=== PATIENT | female | born 1975 | race Caucasian/White ===

== ENCOUNTER 2019-05-06 14:28 | Observation (INO) ==
[2019-05-06] MEDS ORDERED: ZOFRAN IV PRN (14:41)
[2019-05-06] MEDS ORDERED: SODIUM CHLORIDE 0.9% INJ SCH (14:45)
[2019-05-06] MEDS ORDERED: NEXIUM IV SCH (14:45)
--- NOTE | 2019-05-06 15:23 | HISTORY AND PHYSICAL ---
CHIEF COMPLAINT: Nausea, upper abdominal discomfort since a week ago. HISTORY OF PRESENT ILLNESS: She is a 44-year-old white female who was evaluated in our office on Thursday with passing dark colored urine, fatigue, jaundice. The patient was found to have cholestatic jaundice, increased LFTs, direct bilirubin 4.3. She also had a UTI and given Levaquin. Hepatitis profile is pending. Outpatient ultrasound showed gallstones and gallbladder wall thick and common bile duct is normal. Hepatic steatosis, mild splenomegaly with accessory spleen. I spoke to the patient. We can do as an outpatient for this gallbladder disease and rule out hepatitis. Family decided they do not want to wait, admitted to the hospital for further workup. PAST MEDICAL HISTORY: 1. Gallbladder disease with stones. 2. COFFMAN. 3. Splenomegaly. 4. Metabolic syndrome. PAST SURGICAL HISTORY: LEEP procedures, breast augmentation. MEDICINES: Levaquin. ALLERGIES: Sulfa. SOCIAL HISTORY: a second time. Three children. 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 No smoking. No alcohol. She is 5 feet 11 inches, 194 pounds. MAIL HANDLER ASSISTANT: 5, para 3, 0. LMP last week. HEALTH MAINTENANCE: Mammography this year 2019. Pap smear March 2019 in [place]. FAMILY HISTORY: Mother is healthy, 75, had gallbladder surgery. Dad is 77, healthy. REVIEW OF SYSTEMS: HEENT: No headache. No vision problem. No earache. No sore throat. Neck: No neck pain. No goiter. No lymphadenopathy. Cardiopulmonary: No chest pain, shortness of breath, PND, orthopnea. Gastrointestinal: Upper abdominal discomfort, nausea and dark urine. No belly pain. No fever. No swelling of legs. No joint pain. Neurologic: No focal symptoms or weakness. PHYSICAL EXAMINATION: VITAL SIGNS: Patient is afebrile. Vitals are stable. HEENT: Has jaundice. NECK: Supple. No lymphadenopathy. CHEST: Bilateral air entry. HEART: Sounds are regular. Belly is soft, nontender. Negative Farris's sign. No signs of peritonitis. No peripheral edema, cyanosis, no obvious neurological deficits. INVESTIGATIONS: In our office, CBC: White cell count 6, hematocrit 39, platelets 289,000. Hepatitis profile is pending. Thyroid tests were pending. SMA 7 is normal. Total protein 6.2, albumin 3.5, total bilirubin 7.0, alkaline phosphatase, SGOT, SGPT are elevated. Total bilirubin 7.0, direct is 4.3. ASSESSMENT AND PLAN: A 44-year-old white female admitted to the hospital with obstructive jaundice, cholestatic picture, rule out hepatitis, ultrasound, gallbladder disease and impending dehydration. PLAN: 1. IV fluids, IV Zofran, IV Nexium. 2. Deep venous thrombosis prophylaxis with Lovenox. 3. Urinary tract infection. Continue on Levaquin. 4. Follow up on the pending labs. 5. Surgical consult sales and service consultant with Dr. Alonso Lopez and will follow up. cc: Gualberto Mensah MD MTDD
[2019-05-06] MEDS: SODIUM CHLORIDE 0.9% INJ SCH (17:47)
[2019-05-06] MEDS: LEVAQUIN 500 MG/D5W 500 MG/100 ML IVPB IV SCH (17:47)
[2019-05-06] MEDS: NS 1,000 ML IV SCH (17:47)
[2019-05-06] MEDS: PROTONIX IV SCH (17:47)
[2019-05-06 17:54] LABS: BASO# 0.08 X1000 (0.0-0.2); BASO% 1.5 % (0.0-0.8); EOS# 0.06 X1000 (0.0-0.7); EOS% 1.2 % (0.0-10.0); HEMATOCRIT 42.4 % (37.0-47.0); HEMOGLOBIN 13.3 g/dL (12.0-16.0); LYMPH# 2.78 X1000 (1.2-3.4); LYMPH% 53.8 % (20.5-51.1); MCH 25.5 PG (27-31); MCHC 31.4 g/dL (33-37); MCV 81.4 FL (81-99); MONO# 0.44 X1000 (0.11-0.59); MONO% 8.5 % (1.7-9.3); MPV 10.2 FL (7.4-10.4); NEUT# 1.81 X1000 (1.4-6.5); PLT 296 X1000 (130-400); RBC 5.21 XMIL (4.2-5.4); RDW 16.2 % (11.5-14.5); WBC 5.17 X1000 (4.8-10.8)
[2019-05-06 18:10] LABS: AGAP 8; BUN 9 mg/dL (8-22); CALCIUM 8.7 mg/dL (8.8-10.2); CHLORIDE 99 mmol/L (98-107); COSMO 272; CREATININE 0.6 mg/dL (0.5-0.9); ESTIMATED GFR > 60; GLUCOSE 88 mg/dL (70-104); HEMOGLOBIN A1C 5.6 % (4.8-6.0); SODIUM 137 mmol/L (136-145); TCO2 30 mmol/L (25-35)
[2019-05-06] MEDS: LOVENOX SUBQ SCH (18:11)
[2019-05-06 18:13] LABS: AGAP 10; ALB/GLOB RATIO 1.1; ALBUMIN 3.4 g/dL (3.5-5.0); ALKALINE PHOSPHATASE 361 U/L (32-104); AMYLASE 45 U/L (20-200); BUN 9 mg/dL (8-22); CALCIUM 8.8 mg/dL (8.8-10.2); CHLORIDE 99 mmol/L (98-107); COSMO 272; CREATININE 0.5 mg/dL (0.5-0.9); ESTIMATED GFR > 60; GLUCOSE 89 mg/dL (70-104); POTASSIUM 3.2 mmol/L (3.5-5.1); SODIUM 137 mmol/L (136-145); TCO2 28 mmol/L (25-35); TOTAL BILIRUBIN 7.51 mg/dL (0.20-1.00); TOTAL PROTEIN 6.5 g/dL (6.3-8.3)
[2019-05-06 18:22] LABS: GOT 802 U/L (10-30); GPT 1601 U/L (10-36)
--- NOTE | 2019-05-06 20:50 | GENERAL SURGERY CONSULTATION ---
DATE: 05/06/2019 REQUESTING PHYSICIAN: Celia Mensah MD REASON FOR CONSULTATION: Jaundice. HISTORY OF PRESENT ILLNESS: A 44-year-old female who was evaluated in Dr. Mensah's office for discolored urine, and is noted to be jaundiced. She did have an ultrasound as an outpatient that showed gallstones, and per report gallbladder wall thickening. The common bile duct was normal. There is some mild splenomegaly with accessory spleen and hepatic steatosis. The patient at this point does not have any intra-abdominal tenderness and told me she did not have any tenderness. She denies any kind of change in her diet, has not eaten any uncooked food. She has not had any new sexual partners or any unprotected sex recently. PAST MEDICAL HISTORY: 1. Includes history of gallstones. 2. History of nonalcoholic steatohepatitis. 3. History of splenomegaly. 4. Metabolic syndrome. PAST SURGICAL HISTORY: Includes LEEP procedure, breast augmentation. MEDICATIONS: Home medications include Levaquin. ALLERGIES: Sulfa. SOCIAL HISTORY: . Works in [employer]. FAMILY HISTORY: Positive for gallbladder disease. REVIEW OF SYSTEMS: A full 14 systems were reviewed and are negative except as specified in HPI. PHYSICAL EXAMINATION: Vital signs: The patient is currently afebrile. Her vital signs are stable. On general exam, no acute distress. Jaundiced female, looks stated age.HEENT: Normocephalic, atraumatic. Pupils equal, round and reactive to light. Scleral icterus noted. Mucous membranes moist. Oropharynx benign. Neck supple. Trachea midline. Cardiovascular: Regular rate and rhythm. Lungs grossly clear. Abdomen soft, nontender at this time. Extremities: Moves all extremities. Neurologic: Grossly intact. Skin: Positive for jaundice. Vascular: All extremities perfused. LABORATORY DATA: White blood count is normal, hematocrit is normal, platelet count is normal. Bilirubin is 7, AST 800, ALT 1600, alkaline phosphatase 361. Hepatitis panel is currently pending. DIAGNOSTIC DATA: Abdominal CT scan is currently pending. ASSESSMENT AND PLAN: A 44-year-old female with jaundice. Jaundice: At this time the potentials include hepatitis versus gallbladder disease versus even the possibility of pancreatic issue and mass. The history she has given me is almost essentially a painless jaundice. She does not really report any risk factors for hepatitis, but apparently does have a friend who has been over to her house who did have hepatitis. At this point, would like to get the hepatitis panel and we will follow up with a CT scan. May consider surgical intervention if everything else is negative, as gallbladder disease is the only potential cause, but again her common bile duct was not dilated. I would suspect it would be somewhat dilated if she had such an elevated bilirubin. Regardless, we will admit her, keep her on intravenous antibiotics and monitor her closely. Again, potentially consider surgery if imaging and continued workup point in that direction. cc: MD Gualberto Beard MD
[2019-05-06] MEDS: POTASSIUM CHLORIDE 20 MEQ/SWI 20 MEQ/100 ML IVPB IV SCH (21:08)
--- NOTE | 2019-05-06 21:28 | Diag Imaging Result Doc PS360 ---
EXAM: CT ABD/PELVIS W/IV CONT ONLY INDICATION: Abdominal pain TECHNIQUE: This exam was performed using automated exposure control, adjustment of mA or kV according to patient size, and/or use of iterative reconstruction technique. COMPARISON: None. FINDINGS: There is periportal edema and a small amount of fluid that is surrounding the gallbladder. This is a nonspecific finding and can be seen with hepatitis or lymphatic obstruction near the sharad hepatis. Although cholecystitis is in the differential given the pericholecystic fluid. There is no definite gallbladder wall thickening. The head of the pancreas does appear somewhat large. However, no well-defined pancreatic mass can be identified on this study. The common bile duct is not dilated. There is a vague mass that probably represents an enlarged lymph node near the sharad hepatis anterior to the vena cava that measures 2.5 x 1.4 cm axially. Consider evaluation with contrast-enhanced MRI with MRCP. There is probably very minimal hepatic steatosis. The spleen is slightly prominent measuring up to 14.2 cm craniocaudally. The kidneys and urinary bladder are unremarkable. The reproductive tract is grossly unremarkable as imaged. No bowel wall thickening or bowel obstruction is identified. The remainder of the GI tract is essentially unremarkable. There is no evidence of acute osseous abnormality. IMPRESSION: 1.Periportal edema and fluid around the gallbladder. Please see above discussion. 2.Somewhat enlarged pancreatic head. Although no well-defined pancreatic head mass can be identified on the current study, consider evaluation with MRI with contrast to exclude an occult mass. 3.Masslike lesion anterior to the vena cava near the sharad hepatis that probably represents an enlarged lymph node. 4.Mildly prominent spleen. Electronically signed by Anatoliy Gloria 05/06/2019 9:25 PM
[2019-05-07] MEDS: POTASSIUM CHLORIDE 20 MEQ/SWI 20 MEQ/100 ML IVPB IV SCH (00:25)
--- NOTE | 2019-05-07 06:01 | GENERAL SURGERY PROGRESS NOTE ---
DATE: 05/07/2019 SUBJECTIVE: The patient seems to be doing okay. No major issues. No pain. She seems to be comfortable. OBJECTIVE: Vital Signs: The patient is currently afebrile, her vital signs stable. General: No acute distress, jaundiced female, looks stated age. HEENT: Normocephalic, atraumatic. Pupils equal, round, and reactive to light. Positive scleral icterus noted. Mucous membranes moist. Oropharynx benign. Neck: Supple. Trachea midline. Cardiovascular: Regular rate and rhythm. Lungs: Grossly clear. Abdomen: Soft, nontender, nondistended. Extremities: Moves all extremities. Neurologic: Grossly intact. Skin: Positive for jaundice. Vascular: All extremities perfused. LABORATORY: Currently pending. ASSESSMENT/PLAN: A 44-year-old female with painless jaundice. Painless jaundice: At this time, reviewed the official report from the CT scan. I did discuss it with the radiologist over the phone last night. There is some concern of an enlargement of the pancreatic head. It is very vague and there is potential for a masslike lesion anterior to the vena cava which is causing some degree of compression on the vena cava. There is some periportal edema also around the gallbladder which may represent cholecystitis or just whatever process is occurring. At this point she will likely need further imaging before we can definitively put her through any operation, and I would recommend follow-up hepatitis panel and potentially get an MRI and MRCP on Thursday when we can get it. If she does okay, I would consider putting her on a clear liquid diet. We will continue to follow while she is in the hospital. No immediate plans for surgical intervention. cc: MD Gualberto Beard MD
--- NOTE | 2019-05-07 12:52 | PROGRESS NOTE ---
DATE: 05/07/2019 SUBJECTIVE: I appreciated Dr. Alonso Lopez's consult and I spoke to the patient at bedside more than [address] findings were discussed with the patient, and slightly itching. OBJECTIVE: Vital signs: Temperature is 98 degrees. Vitals are stable. Skin: Jaundice noted. Chest: Clear. Heart: Sounds are regular. Abdomen: Belly is soft, nontender. Neurologic: No obvious deficits. INVESTIGATIONS: 1. Bilirubin 7.5. Elevated LFTs. Serum test was negative. 2. CT scan of the abdomen and pelvis showed periportal edema around the gallbladder, enlarged pancreatic head, masslike lesion anterior to the vena cava near the sharad hepatitis with lymph node and mildly prominent spleen. ASSESSMENT: 1. Obstructive jaundice, etiology to be determined. Ultrasound findings showed gallstones with thickening of the gallbladder wall. Common bile duct is normal. History of exposure for hepatitis A pending hepatitis profile. 2. Rule out pancreatic obstructive lesions. Discussed with the patient, we will set up an MRI of the abdomen with contrast and check CA-19-9, IgG 4 levels. PLAN OF CARE: Continue fluids, full liquid diet, Ambien for sleep tonight and follow up on hepatitis profile, CA-19-9, IgG subclasses and discuss the working diagnosis with the patient. LEVEL OF DOCUMENTATION: 25 minutes. cc: Gualberto Mensah MD
[2019-05-07] MEDS: NS 1,000 ML IV SCH (16:26)
[2019-05-07] MEDS: LEVAQUIN 500 MG/D5W 500 MG/100 ML IVPB IV SCH (16:28)
[2019-05-07] MEDS: LOVENOX SUBQ SCH (16:29)
[2019-05-07] MEDS: SODIUM CHLORIDE 0.9% INJ SCH (17:44)
[2019-05-07] MEDS: PROTONIX IV SCH (17:44)
[2019-05-07] MEDS ORDERED: AMBIEN PO SCH (21:00)
[2019-05-08] MEDS: NS 1,000 ML IV SCH ×2 (04:54→09:19)
--- NOTE | 2019-05-08 06:21 | GENERAL SURGERY PROGRESS NOTE ---
DATE: 05/08/2019 SUBJECTIVE: Patient seems to be doing okay. No major issues. She tolerated a full liquid diet. OBJECTIVE: Vital Signs: Patient is currently afebrile. Her vital signs are stable. General: No acute distress. HEENT: Normocephalic, atraumatic. Pupils equal, round, reactive to light. Positive scleral icterus. Mucous membranes moist. Oropharynx benign. Neck: Supple. Trachea midline. Cardiovascular: Regular rate and rhythm. Lungs: Grossly clear. Abdomen: Soft, nontender. Extremities: Moves all extremities. Skin: Positive for jaundice. Vascular: All extremities perfused. LABORATORY: None this morning as of yet. Hepatitis panel is still pending. Several other labs still pending. ASSESSMENT AND PLAN: A 44-year-old female with essentially painless jaundice. Painless jaundice, at this time. MRI is scheduled for tomorrow. We will follow up with that. Otherwise, continue supportive care. Will await hepatitis panel and series of other labs that have been ordered. cc: MD Gualberto Beard MD
[2019-05-08 07:12] LABS: AGAP 7; ALB/GLOB RATIO 0.9; ALBUMIN 2.4 g/dL (3.5-5.0); ALKALINE PHOSPHATASE 302 U/L (32-104); BUN 5 mg/dL (8-22); CALCIUM 7.9 mg/dL (8.8-10.2); CHLORIDE 105 mmol/L (98-107); COSMO 271; CREATININE 0.4 mg/dL (0.5-0.9); ESTIMATED GFR > 60; GLUCOSE 89 mg/dL (70-104); GOT 419 U/L (10-30); POTASSIUM 3.8 mmol/L (3.5-5.1); SODIUM 137 mmol/L (136-145); TCO2 25 mmol/L (25-35); TOTAL BILIRUBIN 6.25 mg/dL (0.20-1.00); TOTAL PROTEIN 5.1 g/dL (6.3-8.3)
[2019-05-08 07:27] LABS: GPT 869 U/L (10-36)
[2019-05-08 11:28] VITALS: BP 124/79
[2019-05-08 11:36] LABS: HEPATITIS PROFILE ACUTE SEE COMMENTS
--- NOTE | 2019-05-08 13:00 | DISCHARGE SUMMARY ---
ADMISSION DATE: 05/06/2019 DISCHARGE DATE: 05/08/2019 DISCHARGING DIAGNOSIS: Cholestatic jaundice due to acute hepatitis A infection. SECONDARY DIAGNOSES: 1. Gallbladder disease with chronic cholecystitis and gallstones. 2. Hepatic steatosis with splenomegaly. 3. Metabolic syndrome. CONSULTS: Dr. Lopez. BRIEF HISTORY: Please see the H and P that was done on 05/06/2019. In brief, she is a 44-year- old, white female without any significant past medical history, losing weight, about 30 pounds for the last 6 months, admitted to the hospital with nausea, hypokalemia, impending dehydration, and jaundice consistent with cholestatic jaundice picture. Ultrasound showed gallstone disease, chronic cholecystitis, common bile duct is normal. HOSPITAL COURSE: The patient was given IV fluids. Replaced the potassium. Zofran. IV PPI. Further workup revealed hepatitis C IgM antibody was positive. She was exposed to the hepatitis A infection from a friend about a month ago. The levels were coming down, and the patient was advised supportive care. IMAGING AND LABORATORY DATA: CBC is normal. SMA-7 is normal. Calcium 7.9. Bilirubin 6.25. LFTs were coming down. test was negative. Hepatitis panel positive for IgM, hepatitis C antibody. CT scan of the abdomen and pelvis: Peripheral edema and fluid around the gallbladder, somewhat enlarged pancreatic head, and enlarged lymph node close to the inferior vena cava, mildly prominent spleen. At this time, the picture is most likely cholestatic jaundice due to hepatitis A. CA19-9 and IgG4 levels are pending. Will schedule outpatient MRI of the abdomen. The patient was discharged home in a stable condition with the following instructions. DISCHARGE INSTRUCTIONS: Supportive care, bedrest, work excuse for 2 weeks, Protonix 40 daily, Zofran 4 mg as needed for nausea, soft diet, avoid fatty greasy foods. Watch for the symptoms and signs of infection. Explained the hepatitis A vaccine for the children and the if they are not immunized, and will follow up as an outpatient in my office in 2 weeks. cc: Gualberto Mensah MD
== END 2019-05-08 13:55 | disposition home or self-care (01) ==
LOC: DIRADM 14:28 → INTOOBSV 14:28 → EDIPHOLD 17:06 → 4N 18:49
PROVIDERS: ADMIT Internal Medicine; ATTEND Internal Medicine